=== PATIENT | male | born 1965 | race Caucasian/White ===

== ENCOUNTER 2020-12-05 05:06 | Emergency (ER) | payer OTHER ==
[~2020-12-05 05:06] MED LIST: ALENDRONATE SOD35 MG PO; ALLERGY10 MG PO; BETAPACE80 MG PO; DILTIAZEM 24HR240 M1 PO; ECOTRIN325 MG PO; ECOTRIN81 MG PO; ELIQUIS2.5 MG PO; FLONASE 0.05% N16 GM; LOPRESSOR 25 MG25 MG PO; LOPRESSOR 50 MG50 MG PO; NITROSTAT0.4 MG SL; RANITIDINE HCL150 M1 PO
[2020-12-05 05:37] LABS: RED BLOOD COUNT 5.53 M/UL (4.20-5.50); WHITE BLOOD COUNT 7.6 K/UL (4.5-11.0)
[2020-12-05 05:58] LABS: BUN/CREATININE RATIO 17 (0-10)
[2020-12-05] MEDS ORDERED: ASPIRIN CHEWABL81 MG PO (08:59)
[2020-12-05] MEDS ORDERED: SOTALOL120 MG PO (08:59)
== END 2020-12-05 09:33 | disposition home or self-care (01) ==
LOC: ER1 05:06
PROVIDERS: Student in an Organized Health Care Education/Training Program
DX: I48.91 Unspecified atrial fibrillation (principal); Z79.82 Long term (current) use of aspirin
CPT/HCPCS: 80053; 82550; 82553; 83735; 83874; 84100; 84439; 84443; 84484; 85025; 85610; 85730; 93005; 96374; 99285